=== PATIENT | female | born 1995 | race Caucasian/White ===

== ENCOUNTER 2017-06-30 20:18 | Emergency (ER) | payer OTHER ==
[2017-07-01 00:16] VITALS: BP 123/64
== END 2017-07-01 00:16 | disposition home or self-care (01) ==
LOC: ED 20:18
DX: T78.40XA Allergy, unspecified, initial encounter (principal); X58.XXXA Exposure to other specified factors, initial encounter
CPT/HCPCS: J1100; Q0163

== ENCOUNTER 2019-07-25 17:39 | Emergency (ER) | payer OTHER ==
[~2019-07-25] VITALS: Ht 154.9 cm; Wt 74.8 kg
[2019-07-25 17:47] VITALS: Ht 154.9 cm; Wt 74.8 kg
[2019-07-25 18:59] VITALS: BP 133/74
== END 2019-07-25 18:59 | disposition home or self-care (01) ==
LOC: ED 17:39
DX: M54.5 Low back pain (principal); V43.52XA Car driver injured in collision with other type car in traffic accident, initial encounter; Y93.I9 Activity, other involving external motion; Y92.488 Other paved roadways as the place of occurrence of the external cause; Y99.8 Other external cause status
CPT/HCPCS: 36415